=== PATIENT | male | born 1950 | race Caucasian/White ===

== ENCOUNTER 2019-09-12 11:38 | Outpatient (CLI) | payer MEDICARE, OTHER ==
--- NOTE | 2019-09-12 13:12 | CT ---
POSTCONTRAST SOFT TISSUE NECK CT: HISTORY: Left jaw swelling. Left jaw pain. Symptoms occurred 2 weeks ago and has subsequently resolved. FINDINGS: Visualized brain parenchyma is unremarkable. Visualized orbits are unremarkable. Adequate aeration visualized sinuses and mastoid air cells. No significant periodontal disease in the visualized maxilla or mandible. 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 Dental amalgam artifact does limit evaluation. Aerodigestive tract is patent. No obvious mucosal abnormality. There is dental amalgam artifact invol ving the oral cavity. Midline fatty raphae of the tongue is preserved. Epiglottis has normal caliber. Preepiglottic fat is preserved. Symmetric attenuation of the parotid and submandibular glands. Symmetric attenuation of the paraspinal muscles. Visualized great vessels of the neck are patent. Cervical spine vertebral body height is maintained and there is no fracture. Varying degrees of central canal stenosis and neural foraminal narrowing on the basis of degenerative change. Upper mediastinum is unremarkable. Presumed chronic changes in the visualized lung parenchyma. No evidence of lymphadenopathy by size criteria. IMPRESSION: No acute masses, lymphadenopathy, abscess or significant soft tissue swelling in the left jaw or neck . Transcribed Date/Time: 09/12/2019 1:20 PM
[2019-09-12] MEDS ORDERED: Iopamidol-370 76% 500 ML 1 ML ONE (15:50)
== END 2019-09-12 11:39 | disposition home or self-care (01) ==
LOC: CT 11:38
PROVIDERS: ATTEND Student in an Organized Health Care Education/Training Program
DX: K11.20 Sialoadenitis, unspecified (principal)
CPT/HCPCS: 70491; Q9967

== ENCOUNTER 2021-01-21 10:31 | Outpatient (CLI) | payer MEDICARE, OTHER | END 2021-01-21 10:32 | disposition home or self-care (01) | LOC: BICRAD 10:31 | PROVIDERS: ATTEND Family Medicine | DX: R05 Cough (principal) | CPT/HCPCS: 71046 ==

== ENCOUNTER 2022-09-05 11:54 | Outpatient (CLI) | payer MEDICARE, OTHER | END 2022-09-05 11:55 | disposition home or self-care (01) | LOC: BICRAD 11:54 | PROVIDERS: ATTEND Nurse Practitioner Family | DX: R09.89 Other specified symptoms and signs involving the circulatory and respiratory systems (principal) | CPT/HCPCS: 71046 ==

== ENCOUNTER 2023-05-25 11:29 | Inpatient (IN) | payer MEDICARE, OTHER ==
[2023-05-25] MEDS ORDERED: Acetaminophen 650 MG Suppository PR PRN (14:09)
[2023-05-25 14:12] VITALS: BMI 33.2
[2023-05-25] MEDS ORDERED: Aluminum & Magnesium Hydroxide 60 ML, diphenhydrAMINE 150 MG, Lidocaine 2% Viscous Solu... SSW PRN (14:19)
[2023-05-25] MEDS ORDERED: Morphine 4 MG/ML VIAL SLOW IVP SCH (14:30)
[2023-05-25] MEDS ORDERED: Pantoprazole 40 MG VIAL IVP SCH (15:00)
[2023-05-25] MEDS: Dextrose 5 %-0.45 % NaCl 1,000 ML IV SCH (15:34)
[2023-05-25 16:47] LABS: Hematocrit 26.1 % (42.0-52.0); Hemoglobin 8.8 g/dL (14.0-18.0); Manual Diff?? YES; Mean Corpuscular HGB CONC 33.7 g/dL (32.0-36.0); Mean Corpuscular Volume 86.1 fl (78.0-98.0); Mean Platelet Volume 9.7 fL (7.4-10.4); Platelet Count 105 10x3/uL (130-400); RBC Distribution Width 13.9 % (11.5-14.5); Red Blood Cell (RBC) Count 3.03 mill/uL (4.70-6.10); White Blood Cell (WBC) Count 1.4 10x3/uL (4.8-10.8)
[2023-05-25] MEDS ORDERED: hydrALAZINE 20 MG/ML VIAL SLOW IVP PRN (16:54)
[2023-05-25 16:58] LABS: Delete Auto Diff?? YES
[2023-05-25 17:01] LABS: INR-International Normal Ratio 1.5; Prothrombin Time 18.7 sec (12.0-14.7)
[2023-05-25 17:02] LABS: PTT 32.3 sec (22.9-36.1)
[2023-05-25 17:04] LABS: Phosphorus 3.1 mg/dL (2.3-4.7)
[2023-05-25 17:14] LABS: ALT (SGPT) 11 U/L (8-55); AST (SGOT) 17 U/L (5-34); Albumin 3.7 g/dL (3.4-4.8); Alkaline Phosphatase 66 U/L (40-110); Anion Gap 20 mmol/L (10-20); BUN (Urea Nitrogen) 28 mg/dL (8.4-25.7); Bilirubin, Total 0.6 mg/dL (0.2-1.2); Calc. Creatinine Clearance 69 mL/min (70-130); Carbon Dioxide 22 mmol/L (23-31); Chloride 101 mmol/L (98-107); Estimated GFR 55; Globulin 2.1 g/dL (2.4-3.5); Glucose 98 mg/dL (83-110); Potassium 3.5 mmol/L (3.5-5.1); Protein, Total 5.8 g/dL (5.8-8.1); Sodium 139 mmol/L (136-145)
[2023-05-25 17:16] LABS: Band 19 % (5-11); CellaVision Operator ID LAB.KB; Dohle Bodies SLIGHT; Lymphocytes 10 % (21-51); Monocytes 21 % (0-10); Neutrophil 50 % (42-75); Ovalocytes SLIGHT = 2-5 cells HPF (0-1); Platelet Adequacy Comment Platelets Decreased; Polychromasia SLIGHT = 2-3 cells HPF (0-2); Total Cell Count 101
[2023-05-25 17:27] LABS: Calcium 6.5 mg/dL (7.8-10.44); Magnesium 0.9 mg/dL (1.6-2.6)
[2023-05-25] MEDS ORDERED: Magnesium Sulfate In Water 4 GM in Premix 1 BAG IVPB SCH (17:30)
[2023-05-25] MEDS ORDERED: Glucagon 1 MG/ML KIT IM PRN (17:56)
[2023-05-25] MEDS ORDERED: Dextrose 50% Abboject 50 ML SYRINGE SLOW IVP PRN (17:56)
[2023-05-25] MEDS ORDERED: Dextrose 5% in Water 1,000 ML IV PRN (17:56)
[2023-05-25] MEDS ORDERED: HumaLOG 300 UNITS/3 ML VIAL SC PRN (17:56)
[2023-05-25] MEDS ORDERED: Calcium Chloride 13.6 MEQ in Sodium Chloride 0.9% 100 ML IVPB SCH (19:00)
[2023-05-25] MEDS: Morphine 4 MG/ML VIAL SLOW IVP PRN ×2 (19:55→23:40)
[2023-05-26] MEDS: Dextrose 5 %-0.45 % NaCl 1,000 ML IV SCH (04:21)
[2023-05-26] MEDS: Morphine 4 MG/ML VIAL SLOW IVP PRN ×5 (04:21→21:47)
[2023-05-26 05:39] LABS: Hemoglobin 8.8 g/dL (14.0-18.0); Manual Diff?? YES; Mean Corpuscular HGB CONC 33.8 g/dL (32.0-36.0); Mean Corpuscular Hemoglobin 28.8 pg (27.0-31.0); Mean Platelet Volume 9.8 fL (7.4-10.4); Platelet Count 99 10x3/uL (130-400); Red Blood Cell (RBC) Count 3.06 mill/uL (4.70-6.10); White Blood Cell (WBC) Count 1.3 10x3/uL (4.8-10.8)
[2023-05-26 06:06] LABS: Magnesium 1.5 mg/dL (1.6-2.6); Phosphorus 3.3 mg/dL (2.3-4.7)
[2023-05-26 06:09] LABS: Anion Gap 18 mmol/L (10-20); BUN (Urea Nitrogen) 26 mg/dL (8.4-25.7); Calc. Creatinine Clearance 68 mL/min (70-130); Calcium 7.7 mg/dL (7.8-10.44); Carbon Dioxide 24 mmol/L (23-31); Chloride 100 mmol/L (98-107); Estimated GFR 54; Glucose 111 mg/dL (83-110); Potassium 3.1 mmol/L (3.5-5.1); Sodium 139 mmol/L (136-145)
[2023-05-26 06:15] LABS: Delete Auto Diff?? YES
[2023-05-26 08:21] LABS: Band 16 % (5-11); CellaVision Operator ID lab.dlt; Eosinophils 1 % (0-10); Large Platelets 6.9 % (0-5); Lymphocytes 10 % (21-51); Monocytes 12 % (0-10); Neutrophil 61 % (42-75); Ovalocytes SLIGHT = 2-5 cells HPF (0-1); Platelet Adequacy Comment Platelets Decreased; Tear Drops SLIGHT = 2-5 cells HPF (0-1); Total Cell Count 101
[2023-05-26] MEDS: Potassium Chloride 20 MEQ in Premix 1 BAG IVPB SCH ×3 (08:43→17:24)
[2023-05-26] MEDS: Pantoprazole 40 MG VIAL IVP SCH (08:44)
[2023-05-26] MEDS ORDERED: Magnesium 2 GM/50 ML(in water) 2 GM in Premix 1 BAG IVPB SCH (09:00)
[2023-05-26] MEDS ORDERED: Sodium Chloride 0.9% 100 ML ONE (09:59)
[2023-05-26] MEDS ORDERED: CEFAZOLIN 2 GM VIAL ONE (09:59)
[2023-05-26] MEDS ORDERED: PROPOFOL 200 MG/20 ML VIAL ONE (10:23)
[2023-05-26] MEDS ORDERED: Lidocaine 1% PF 5 ML VIAL ONE (10:23)
[2023-05-26] MEDS: Gabapentin 400 MG CAP PER TUBE SCH ×3 (16:22→21:48)
[2023-05-26] MEDS: Ondansetron PF 4 MG/2 ML Vial IVP PRN (16:23)
[2023-05-26] MEDS: Atorvastatin Calcium 20 MG TAB PER TUBE SCH (21:49)
[2023-05-26] MEDS: Losartan 25 MG TAB PER TUBE SCH (21:49)
[2023-05-26] MEDS: Amlodipine 10 MG TAB PER TUBE SCH (21:50)
[2023-05-27] MEDS: Morphine 4 MG/ML VIAL SLOW IVP PRN ×2 (04:39→10:20)
[2023-05-27 05:41] LABS: Hematocrit 27.1 % (42.0-52.0); Hemoglobin 9.2 g/dL (14.0-18.0); Manual Diff?? YES; Mean Corpuscular HGB CONC 33.9 g/dL (32.0-36.0); Mean Corpuscular Volume 85.5 fl (78.0-98.0); Mean Platelet Volume 9.9 fL (7.4-10.4); Platelet Count 111 10x3/uL (130-400); Red Blood Cell (RBC) Count 3.17 mill/uL (4.70-6.10); White Blood Cell (WBC) Count 1.6 10x3/uL (4.8-10.8)
[2023-05-27 05:51] LABS: Delete Auto Diff?? YES
[2023-05-27 06:08] LABS: Anion Gap 16 mmol/L (10-20); BUN (Urea Nitrogen) 26 mg/dL (8.4-25.7); Calc. Creatinine Clearance 71 mL/min (70-130); Calcium 7.4 mg/dL (7.8-10.44); Carbon Dioxide 27 mmol/L (23-31); Chloride 99 mmol/L (98-107); Estimated GFR 57; Glucose 136 mg/dL (83-110); Potassium 3.6 mmol/L (3.5-5.1); Sodium 138 mmol/L (136-145)
[2023-05-27 06:23] LABS: Band 3 % (5-11); CellaVision Operator ID lab.abc; Large Platelets 6.9 % (0-5); Lymphocytes 12 % (21-51); Monocytes 12 % (0-10); Neutrophil 74 % (42-75); Platelet Adequacy Comment Platelets Decreased; RBC Morphology Within Normal Limits; Smudge Cells 3.9 %; Total Cell Count 102; Toxic Granulation SLIGHT
[2023-05-27 06:58] LABS: Phosphorus 2.4 mg/dL (2.3-4.7)
[2023-05-27] MEDS ORDERED: CALCIUM GLUC 1 GM/NS 50 ML 1 GM in Premix 1 BAG IVPB SCH (10:00)
[2023-05-27] MEDS: Gabapentin 400 MG CAP PER TUBE SCH ×3 (10:11→21:25)
[2023-05-27] MEDS: Pantoprazole 40 MG VIAL IVP SCH (10:11)
[2023-05-27] MEDS ORDERED: Morphine ER 15 MG TAB PO SCH ×2 (12:19→21:00)
[2023-05-27] MEDS ORDERED: Scopolamine 1.5 mg/72 hour Patch TD SCH (13:00)
[2023-05-27] MEDS ORDERED: Morphine 20 MG/ML Oral Solution (ROXANOL) PER TUBE SCH ×2 (14:45→22:00)
[2023-05-27 15:03] LABS: Magnesium 1.3 mg/dL (1.6-2.6)
[2023-05-27] MEDS ORDERED: HYDROmorphone 2 MG/ML VIAL SLOW IVP SCH (18:00)
[2023-05-27] MEDS: Ondansetron PF 4 MG/2 ML Vial IVP PRN (18:27)
[2023-05-27] MEDS: Morphine 20 MG/ML Oral Solution (ROXANOL) PER TUBE SCH (21:23)
[2023-05-27] MEDS: Atorvastatin Calcium 20 MG TAB PER TUBE SCH (21:24)
[2023-05-27] MEDS: Losartan 25 MG TAB PER TUBE SCH (21:25)
[2023-05-27] MEDS: Amlodipine 10 MG TAB PER TUBE SCH (21:25)
[2023-05-28] MEDS: Morphine 20 MG/ML Oral Solution (ROXANOL) PER TUBE SCH ×3 (05:21→21:44)
[2023-05-28 06:01] LABS: Hematocrit 24.2 % (42.0-52.0); Hemoglobin 8.1 g/dL (14.0-18.0); Manual Diff?? YES; Mean Corpuscular HGB CONC 33.5 g/dL (32.0-36.0); Mean Corpuscular Hemoglobin 28.6 pg (27.0-31.0); Mean Corpuscular Volume 85.5 fl (78.0-98.0); Platelet Count 108 10x3/uL (130-400); Red Blood Cell (RBC) Count 2.83 mill/uL (4.70-6.10); White Blood Cell (WBC) Count 1.3 10x3/uL (4.8-10.8)
[2023-05-28 06:19] LABS: Delete Auto Diff?? YES
[2023-05-28 06:28] LABS: ALT (SGPT) 9 U/L (8-55); AST (SGOT) 15 U/L (5-34); Albumin 3.5 g/dL (3.4-4.8); Alkaline Phosphatase 57 U/L (40-110); Anion Gap 10 mmol/L (10-20); BUN (Urea Nitrogen) 30 mg/dL (8.4-25.7); Bilirubin, Total 0.5 mg/dL (0.2-1.2); Calc. Creatinine Clearance 73 mL/min (70-130); Carbon Dioxide 32 mmol/L (23-31); Chloride 98 mmol/L (98-107); Estimated GFR 58; Globulin 2.4 g/dL (2.4-3.5); Glucose 105 mg/dL (83-110); Potassium 3.2 mmol/L (3.5-5.1); Protein, Total 5.9 g/dL (5.8-8.1); Sodium 137 mmol/L (136-145)
[2023-05-28 06:43] LABS: Anisocytosis SLIGHT = 6-15 cells HPF (0-5); Band 16 % (5-11); CellaVision Operator ID LAB.JMM; Elliptocytes SLIGHT = 2-5 cells HPF (0-1); Hypochromia SLIGHT = 6-15 cells HPF (0-5); Large Platelets 2.8 % (0-5); Lymphocytes 14 % (21-51); Monocytes 18 % (0-10); Neutrophil 52 % (42-75); Platelet Adequacy Comment Platelets Decreased; Polychromasia SLIGHT = 2-3 cells HPF (0-2); Smudge Cells 6.5 %; Total Cell Count 108
[2023-05-28] MEDS: Gabapentin 400 MG CAP PER TUBE SCH ×3 (09:00→21:45)
[2023-05-28] MEDS: Pantoprazole 40 MG VIAL IVP SCH (09:01)
[2023-05-28] MEDS ORDERED: Magnesium Sulfate In Water 4 GM in Premix 1 BAG IVPB SCH (10:30)
[2023-05-28] MEDS ORDERED: Potassium Chloride 20 MEQ TAB PER TUBE SCH (11:00)
[2023-05-28] MEDS: Potassium Bicarbonate/Cit Ac 20 MEQ TAB PER TUBE SCH ×2 (11:34→17:38)
[2023-05-28] MEDS: Morphine 4 MG/ML VIAL SLOW IVP PRN (11:35)
[2023-05-28] MEDS ORDERED: Metoclopramide 10 MG/10 ML UDCUP PER TUBE SCH (15:45)
[2023-05-28] MEDS: Losartan 25 MG TAB PER TUBE SCH (21:45)
[2023-05-28] MEDS: Amlodipine 10 MG TAB PER TUBE SCH (21:45)
[2023-05-28] MEDS: Atorvastatin Calcium 20 MG TAB PER TUBE SCH (21:45)
[2023-05-29] MEDS: Morphine 20 MG/ML Oral Solution (ROXANOL) PER TUBE SCH (05:37)
[2023-05-29 06:08] LABS: Hematocrit 25.8 % (42.0-52.0); Hemoglobin 8.4 g/dL (14.0-18.0); Manual Diff?? YES; Mean Corpuscular HGB CONC 32.6 g/dL (32.0-36.0); Mean Corpuscular Hemoglobin 28.4 pg (27.0-31.0); Mean Corpuscular Volume 87.2 fl (78.0-98.0); Mean Platelet Volume 9.5 fL (7.4-10.4); Platelet Count 112 10x3/uL (130-400); RBC Distribution Width 14.4 % (11.5-14.5); Red Blood Cell (RBC) Count 2.96 mill/uL (4.70-6.10); White Blood Cell (WBC) Count 1.3 10x3/uL (4.8-10.8)
[2023-05-29 06:10] LABS: Delete Auto Diff?? YES
[2023-05-29 06:34] LABS: ALT (SGPT) 10 U/L (8-55); AST (SGOT) 18 U/L (5-34); Albumin 3.4 g/dL (3.4-4.8); Alkaline Phosphatase 57 U/L (40-110); Anion Gap 16 mmol/L (10-20); BUN (Urea Nitrogen) 32 mg/dL (8.4-25.7); Bilirubin, Total 0.7 mg/dL (0.2-1.2); Calc. Creatinine Clearance 68 mL/min (70-130); Calcium 7.2 mg/dL (7.8-10.44); Carbon Dioxide 31 mmol/L (23-31); Chloride 97 mmol/L (98-107); Estimated GFR 54; Globulin 2.9 g/dL (2.4-3.5); Glucose 117 mg/dL (83-110); Protein, Total 6.3 g/dL (5.8-8.1); Sodium 140 mmol/L (136-145)
[2023-05-29 07:32] LABS: Band 19 % (5-11); CellaVision Operator ID LAB.GE; Large Platelets 9.5 % (0-5); Lymphocytes 14 % (21-51); Monocytes 10 % (0-10); Neutrophil 57 % (42-75); Platelet Adequacy Comment Platelets Decreased; Polychromasia SLIGHT = 2-3 cells HPF (0-2); Total Cell Count 21
[2023-05-29] MEDS ORDERED: Metoclopramide 10 MG/10 ML UDCUP PER TUBE SCH (09:00)
[2023-05-29] MEDS ORDERED: Lactated Ringer's 1,000 ML IV SCH (09:15)
[2023-05-29] MEDS: Gabapentin 400 MG CAP PER TUBE SCH (09:39)
[2023-05-29] MEDS: Morphine 4 MG/ML VIAL SLOW IVP PRN (09:41)
[2023-05-29] MEDS ORDERED: NS 2 GM IVPB SCH (10:00)
[2023-05-29] MEDS ORDERED: CALCIUM GLUC IVPB SCH (10:00)
[2023-05-29] MEDS: CALCIUM GLUC 1 GM/NS 50 ML 1 GM in Premix 1 BAG IVPB SCH ×2 (12:48→15:07)
[2023-05-29] MEDS: Pantoprazole 40 MG VIAL IVP SCH (12:54)
[2023-05-29 13:24] VITALS: BP 150/74; TEMP 100.3
== END 2023-05-29 16:27 | disposition home or self-care (01) | DRG 146 ==
LOC: T4-A 11:29 → INTOOBSV 11:29 → SJJU 13:41 → OBSVTOIN 05-27 09:46 → UNDODISIN 05-29 15:21
PROVIDERS: ADMIT Internal Medicine; ATTEND Internal Medicine
PROC: 0DJ08ZZ Inspection of Upper Intestinal Tract, Via Natural or Artificial Opening Endoscopic (ICD-10-PCS; principal; 2023-05-26)
PROC: 0DH63UZ Insertion of Feeding Device into Stomach, Percutaneous Approach (ICD-10-PCS; 2023-05-26)
DX: C09.9 Malignant neoplasm of tonsil, unspecified (principal); D61.810 Antineoplastic chemotherapy induced pancytopenia; K44.9 Diaphragmatic hernia without obstruction or gangrene; I10 Essential (primary) hypertension; E11.9 Type 2 diabetes mellitus without complications; R59.0 Localized enlarged lymph nodes; E86.0 Dehydration; G89.29 Other chronic pain; E78.5 Hyperlipidemia, unspecified; E83.51 Hypocalcemia; T45.1X5A Adverse effect of antineoplastic and immunosuppressive drugs, initial encounter; K13.79 Other lesions of oral mucosa; R63.4 Abnormal weight loss; R13.12 Dysphagia, oropharyngeal phase; Z96.652 Presence of left artificial knee joint; Z98.890 Other specified postprocedural states; Z79.899 Other long term (current) drug therapy; Z92.3 Personal history of irradiation; Z92.21 Personal history of antineoplastic chemotherapy
CPT/HCPCS: 36415; 36416; 77386; 80048; 80053; 83735; 84100; 85025; 85610; 85730; C9113; J0613; J1170; J2270; J2405; J2704; J3475; J3480; J3490; J7042; J7120

== ENCOUNTER 2023-09-04 09:51 | Outpatient (CLI) | payer MEDICARE, OTHER | END 2023-09-04 09:52 | disposition home or self-care (01) | LOC: PET 09:51 | PROVIDERS: ATTEND Radiology Radiation Oncology | DX: C09.1 Malignant neoplasm of tonsillar pillar (anterior) (posterior) (principal); R59.0 Localized enlarged lymph nodes | CPT/HCPCS: 78815; A9552 ==

== ENCOUNTER 2023-09-21 09:22 | Outpatient (CLI) | payer MEDICARE, OTHER ==
[2023-09-21] MEDS ORDERED: Iopamidol 370 76% 100 ML VIAL ONE (13:47)
== END 2023-09-21 09:23 | disposition home or self-care (01) ==
LOC: BICCT 09:22
PROVIDERS: ATTEND Radiology Radiation Oncology
DX: C09.9 Malignant neoplasm of tonsil, unspecified (principal); J98.4 Other disorders of lung; K80.20 Calculus of gallbladder without cholecystitis without obstruction; K76.89 Other specified diseases of liver; J35.8 Other chronic diseases of tonsils and adenoids; R59.0 Localized enlarged lymph nodes
CPT/HCPCS: 70491; 71260; Q9967